=== PATIENT | female | born 1940 | race Caucasian/White ===

== ENCOUNTER → 2018-07-24 | Outpatient (CLI) | payer MEDICARE ==
[~2018-07-24] MED LIST: AMLO10TA8 PO; ASPI325T17 PO; CALC-680 PO; CHOL100012 PO; CYAN100072 PO; CYCL1DRO EACHEYE; ERYT1OIN5 LEFTEYE; FLEC50TA25 PO; Focus Factor PO; LISI-170 PO; LOTE5DRO2 EACHEYE; MAGN500C9 PO; NIAC100035 PO; OMEG1CAP39 PO; POTA99TA8 PO; PRAM0.255 PO; RED600CA2 PO; SIMV5TAB14 PO; VIT1CAPS9 PO
[2018-07-24 13:53] LABS: ALBUMIN 3.7 g/dL (3.4-5.0); ANION GAP 5 mmol/L (5-15); CALCIUM 9.1 mg/dL (8.5-10.1); CHLORIDE 109 mmol/L (98-107)
[2018-07-24 13:56] LABS: ALANINE AMINOTRANSFERASE 19 U/L (12-78); ALKALINE PHOSPHATASE 99 U/L (45-117); BILIRUBIN,TOTAL 0.3 mg/dL (0.2-1.0); CREATININE 0.83 mg/dL (0.55-1.02); TOTAL PROTEIN 7.5 g/dL (6.4-8.2)
== END | disposition home or self-care (01) ==
LOC: STAR 12:25
PROVIDERS: ATTEND Orthopaedic Surgery
DX: Z01.818 Encounter for other preprocedural examination (principal); M18.0 Bilateral primary osteoarthritis of first carpometacarpal joints; M17.0 Bilateral primary osteoarthritis of knee; M54.5 Low back pain; I44.4 Left anterior fascicular block; Z79.899 Other long term (current) drug therapy; Z88.2 Allergy status to sulfonamides
CPT/HCPCS: 36415; 80053; 93005

== ENCOUNTER 2018-07-28 14:21 | Day surgery (SDC) | payer MEDICARE, OTHER ==
[~2018-07-28] VITALS: Ht 165.1 cm; Wt 65.0 kg
[~2018-07-28 14:21] MED LIST changes: +BUPIVACAINE 0.25% ONE; +BUPIVACAINE/PF 0.25% ONE
[2018-07-28] MEDS ORDERED: LACTATED RINGERS 1,000 ML IV SCH ×2 (14:53→19:30)
[2018-07-28] MEDS ORDERED: FENTANYL PF 100 MCG/2ML ONE ×2 (15:52→16:59)
[2018-07-28] MEDS ORDERED: BUPIVACAINE/PF 0.5% ONE (16:34)
[2018-07-28] MEDS ORDERED: BACITRACIN 50,000 UNIT ONE (16:34)
[2018-07-28] MEDS ORDERED: DEXAMETHASONE 4 MG/ML, 1ML ONE (16:44)
[2018-07-28] MEDS ORDERED: PROPOFOL 10 MG/ML, 20ML ONE (16:44)
[2018-07-28] MEDS ORDERED: CEFAZOLIN 1,000 MG ONE (16:44)
[2018-07-28] MEDS ORDERED: ONDANSETRON 2MG/ML, 2ML ONE (16:44)
[2018-07-28] MEDS ORDERED: LIDOCAINE-MPF 2% ,5ML ONE (16:44)
[2018-07-28] MEDS ORDERED: hydrALAzine 20 MG/ML, 1ML IV PRN (17:30)
[2018-07-28] MEDS ORDERED: OXYcodone 5 MG/5 ML ORAL.SOL UDC PO PRN ×2 (17:30→20:30)
[2018-07-28] MEDS ORDERED: DIAZEPAM 5 MG/ML, 2ML IVPush PRN (17:30)
[2018-07-28] MEDS ORDERED: ONDANSETRON 2MG/ML, 2ML IV PRN ×2 (17:30→19:30)
[2018-07-28] MEDS ORDERED: HYDROmorphone 2 MG/ML, 1ML IVPush PRN (17:30)
[2018-07-28] MEDS ORDERED: PROMETHAZINE 25 MG/ML, 1ML IV PRN (17:30)
[2018-07-28] MEDS ORDERED: ONDANSETRON ODT 8 MG PO PRN (17:30)
[2018-07-28] MEDS ORDERED: ACETAMINOPHEN 325 MG TABLET PO PRN (17:30)
[2018-07-28] MEDS ORDERED: FENTANYL PF 100 MCG/2ML IV PRN (17:30)
[2018-07-28] MEDS ORDERED: ACETAMINOPHEN 650 MG/20.3 ML UDC ONE (18:11)
[2018-07-28] MEDS ORDERED: OXYcodone 5 MG/5 ML ORAL.SOL UDC ONE (18:11)
[2018-07-28] MEDS ORDERED: morphine SULFATE 10 MG/ML, 1ML IV PRN (19:30)
[2018-07-28] MEDS ORDERED: PROMETHAZINE 25 MG/ML, 1ML IM PRN (19:30)
[2018-07-28] MEDS ORDERED: OXYcodone/APAP 5/325MG TABLET PO PRN (19:30)
[2018-07-28] MEDS ORDERED: CYCLOSPORINE EACHEYE SCH (21:00)
[2018-07-28] MEDS ORDERED: FLECAINIDE 50MG TABLET PO SCH (21:00)
[2018-07-28] MEDS ORDERED: PRAMIPEXOLE 0.25MG TABLET PO SCH (21:00)
[2018-07-28] MEDS ORDERED: ERYTHROMYCIN OPHTH 0.5%, 1GM LEFTEYE SCH (21:00)
[2018-07-28] MEDS ORDERED: SIMVASTATIN 5 MG TABLET PO SCH (21:00)
[2018-07-29] MEDS ORDERED: ASPIRIN 325 MG TABLET EC PO SCH (06:00)
[2018-07-29] MEDS ORDERED: CHOLECALCIFEROL 1,000 UNIT TABLET PO SCH (09:00)
[2018-07-29] MEDS ORDERED: POTASSIUM 99MG HOMEMEDPO SCH (09:00)
[2018-07-29] MEDS ORDERED: CALCIUM CITRATE 950 MG TABLET PO SCH (09:00)
[2018-07-29] MEDS ORDERED: LISINOPRIL 20 MG TABLET PO SCH (09:00)
[2018-07-29] MEDS ORDERED: NIACIN 500 MG TABLET.ER PO SCH (09:00)
[2018-07-29] MEDS ORDERED: AMLODIPINE 10 MG TAB PO SCH (09:00)
[2018-07-29] MEDS ORDERED: MAGNESIUM OXIDE 400 MG TABLET PO SCH (09:00)
[2018-07-29] MEDS ORDERED: OMEGA-3/FISH OIL CAPSULE PO SCH (09:00)
[2018-07-29] MEDS ORDERED: CYANOCOBALAMIN 1,000 MCG TABLET PO SCH (09:00)
== END 2018-07-28 21:08 | disposition home or self-care (01) ==
LOC: OR 14:21 → 4NOR 18:55 → OR 21:08
PROVIDERS: ATTEND Orthopaedic Surgery
DX: M18.12 Unilateral primary osteoarthritis of first carpometacarpal joint, left hand (principal); F17.210 Nicotine dependence, cigarettes, uncomplicated; I48.91 Unspecified atrial fibrillation; Z79.82 Long term (current) use of aspirin; Z88.1 Allergy status to other antibiotic agents; Z88.8 Allergy status to other drugs, medicaments and biological substances; Z72.89 Other problems related to lifestyle
CPT/HCPCS: 25310; 25447; 73140; 76000; C1713; J0690; J1100; J2405; J2704; J3010; J3490; J7120; G0378